=== PATIENT | female | born 1990 | race Caucasian/White ===

== ENCOUNTER → 2022-03-01 | Outpatient (CLI) | payer BC ==
[~2022-03-01] MED LIST: BENADRYL25 MG PO; BIRTH CONTROL1 EACH; DICYCLOMINE10 MG; KEFLEX500 MG PO; MOTRIN800 MG PO; PREDNICOT20 MG PO; PRILOSEC OTC20 MG
== END | disposition home or self-care (01) ==
LOC: RESCLI 15:48
PROVIDERS: ATTEND Internal Medicine
DX: J40 Bronchitis, not specified as acute or chronic (principal); K44.9 Diaphragmatic hernia without obstruction or gangrene; Z98.890 Other specified postprocedural states; Z82.49 Family history of ischemic heart disease and other diseases of the circulatory system; Z79.899 Other long term (current) drug therapy

== ENCOUNTER → 2022-07-24 | Outpatient (CLI) | payer BC | END | disposition home or self-care (01) | LOC: RAD 09:45 | PROVIDERS: ATTEND Nurse Practitioner | DX: R05.3 Chronic cough (principal) ==

== ENCOUNTER 2023-08-06 17:01 | Emergency (ER) | payer BC, OTHER ==
[~2023-08-06] VITALS: Ht 167.6 cm; Wt 90.7 kg
[2023-08-06 17:10] VITALS: BP 124/59
[2023-08-07 07:07] LABS: HEPATITIS B SURFACE AB Reactive (.)
== END 2023-08-06 17:52 | disposition home or self-care (01) ==
LOC: ED 17:01
PROVIDERS: Emergency Medicine
DX: S61.431A Puncture wound without foreign body of right hand, initial encounter (principal); Z98.890 Other specified postprocedural states; W46.0XXA Contact with hypodermic needle, initial encounter; Y93.89 Activity, other specified; Y92.89 Other specified places as the place of occurrence of the external cause; Y99.0 Civilian activity done for income or pay